=== PATIENT | male | born 1985 | race Caucasian/White ===

== ENCOUNTER → 2017-06-30 | Outpatient (CLI) | payer BC | END | disposition home or self-care (01) | LOC: CVU 08:43 | PROVIDERS: ATTEND Nurse Practitioner Family | DX: I51.7 Cardiomegaly (principal); M79.89 Other specified soft tissue disorders; R20.0 Anesthesia of skin; R20.2 Paresthesia of skin; Z87.891 Personal history of nicotine dependence | CPT/HCPCS: 93017; 93306 ==